=== PATIENT | female | born 1950 | race Caucasian/White ===

== ENCOUNTER 2018-08-22 04:42 | Inpatient (IN) | payer MEDICARE, OTHER ==
[2018-08-22] MEDS ORDERED: Diltiazem 50 MG/10 ML SDV ONE (05:19)
[2018-08-22] MEDS ORDERED: Metoprolol Tartrate 5 MG/5 ML SDV ONE (05:22)
[2018-08-22] MEDS ORDERED: Metoprolol Tartrate 5 MG/5 ML SDV IVPUSH ONE (05:23)
--- NOTE | 2018-08-22 05:33 | EDM.PDOC ---
ED HPI GENERAL MEDICAL PROBLEM - General Chief Complaint: Cardiovascular Problem Stated Complaint: HEART BEATS FAST & SLOW Time Seen by Provider: 08/22/18 04:51 Source of Information: Reports: Patient, Family History Limitations: Reports: No Limitations - History of Present Illness INITIAL COMMENTS - FREE TEXT/NARRATIVE: This is a 68-year-old female. She is noted around 2 AM she awoke and felt like her heart was racing and then it slows down again the races again. She states she is not having any sort of chest pain or dizziness but did have some mild nausea but no vomiting. She has a history of an ablation but she doesn't know why many years ago by a chick sexer in [place] but she is not sure of his name or if he still is in [place]. She comes to the ER she looks like she is in atrial fibrillation from the first EKG but on the monitor she goes from 100 bpm up to 170 and looks like she is in SVT. During the times that her heart rate is up in the 170 she feels like she is going to pass out but her blood pressure does not drop when she is in the rates in the 130s she says she doesn' t feel any particular symptoms. She states she has been on her metoprolol and has not missed a dose. She denies any recent illnesses no colds no coughs no fever no chills no vomiting or diarrhea. The patient indicates that the skipping of her heart has been going on for the last 2 weeks. I has never been as bad as it was this morning and it always has gone back to normal before this AM. This morning however it didn't seem to go back to normal and that is why she came to the ER. 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 Denies: Chest Pain Endocrine: Reports: No Symptoms GI/Abdominal: Reports: Nausea. Denies: Vomiting : Reports: No Symptoms Musculoskeletal: Reports: No Symptoms Skin: Reports: No Symptoms Neurological: Reports: No Symptoms Psychiatric: Reports: No Symptoms Hematologic/Lymphatic: Reports: No Symptoms ED EXAM, GENERAL - Physical Exam Exam: See Below Exam Limited By: No Limitations General Appearance: Alert, WD/WN, No Apparent Distress, Anxious Eye Exam: Bilateral Eye: Normal Inspection Ears: Normal External Exam Nose: Normal Inspection Throat/Mouth: Normal Inspection, Normal Lips, Normal Voice, No Airway Compromise Head: Normocephalic Neck: Supple Respiratory/Chest: No Respiratory Distress, Lungs Clear, Normal Breath Sounds Cardiovascular: No JVD, Tachycardia, Systolic Murmur, Irregularly Irregular GI/Abdominal: Soft, Non-Tender Back Exam: Normal Inspection, Full Range of Motion Extremities: Normal Inspection, Normal Range of Motion, No Pedal Edema Neurological: Alert, Oriented Psychiatric: Anxious Skin Exam: Warm, Dry. No: Diaphoretic EKG INTERPRETATION EKG Date: 08/22/18 Time: 04:53 EKG Interpretation Comments: The patient has what appears to be atrial fibrillation with occasional normal beat with a P-wave, tachycardic, I don't see any obvious ischemia or ST elevation noted. The rate is not controlled at 137. Second EKG suggests a sinus rhythm, there might be some junctional beats or just a sinus arrhythmia. I do not see any acute ST or T-wave changes with this EKG. I do not see any ischemia noted. This time there is good rate control at 95. Third EKG after the diltiazem the rate came down much better and is much more stable and she appears to be in atrial fibrillation. Course - Vital Signs Last Recorded V/S: Last Vital Signs Temp 98 F 08/22/18 04:51 Pulse 123 H 08/22/18 05:24 Resp 23 H 08/22/18 04:51 BP 113/69 08/22/18 05:24 Pulse Ox 98 08/22/18 04:51 - Orders/Labs/Meds Orders: Active Orders 24 hr Category Date Time Status EKG 12 Lead [EKG Documentation Completion] [RC] STAT Care 08/22/18 05:50 Active Diltiazem 125 mg Med 08/22/18 06:45 Active Sodium Chloride 0.9% [Normal Saline] 100 ml IV TITRATE Medication Orders Diltiazem HCl 125 mg/ Sodium (Chloride) 125 mls @ 5 mls/hr IV TITRATE MUNA; Protocol Last Admin: 08/22/18 06:57 Dose: 5 mg/hr, 5 mls/hr Labs: Laboratory Tests 08/22/18 08/22/18 Range/Units 04:54 04:54 WBC 15.34 H (3.98-10.04) K/mm3 RBC 3.69 L (3.98-5.22) M/mm3 Hgb 12.3 (11.2-15.7) gm/L Hct 36.4 (34.1-44.9) % MCV 98.6 H (79.4-94.8) fl MCH 33.3 H (25.6-32.2) pg MCHC 33.8 (32.2-35.5) g/dl RDW Std Deviation 42.7 (36.4-46.3) fL Plt Count 199 (182-369) K/mm3 MPV 10.0 (9.4-12.3) fl Neut % (Auto) 83.0 H (34.0-71.1) % Lymph % (Auto) 7.0 L (19.3-51.7) % [place] % (Auto) 8.7 (4.7-12.5) % Eos % (Auto) 0.8 (0.7-5.8) Baso % (Auto) 0.3 (0.1-1.2) % Neut # (Auto) 12.74 H (1.56-6.13) K/mm3 Lymph # (Auto) 1.07 L (1.18-3.74) K/mm3 [place] # (Auto) 1.33 H (0.24-0.36) K/mm3 Eos # (Auto) 0.12 (0.04-0.36) K/mm3 Baso # (Auto) 0.05 (0.01-0.08) K/mm3 Manual Slide Review Abnormal smear Sodium 139 (136-145) mEq/L Potassium 3.5 (3.5-5.1) mEq/L Chloride 100 (98-107) mEq/L Carbon Dioxide 29 (21-32) mEq/L Anion Gap 13.5 (5-15) BUN 12 (7-18) mg/dL Creatinine 0.9 (0.55-1.02) mg/dL Est Cr Clr Drug Dosing 50.18 mL/min Estimated GFR (MDRD) > 60 (>60) mL/min BUN/Creatinine Ratio 13.3 L (14-18) Glucose 125 H (80-115) mg/dL Calcium 9.0 (8.5-10.1) mg/dL Magnesium 2.2 (1.8-2.4) mg/dl Total Bilirubin 0.6 (0.2-1.0) mg/dL AST 19 (15-37) U/L ALT 22 (14-59) U/L Alkaline Phosphatase 109 (46-116) U/L Troponin I < 0.017 (0.00-0.056) ng/mL Total Protein 7.9 (6.4-8.2) g/dl Albumin 3.5 (3.4-5.0) g/dl Globulin 4.4 gm/dL Albumin/Globulin Ratio 0.8 L (1-2) Meds: Medications Generic Name Dose Route Start Last Admin Trade Name Freq PRN Reason Stop Dose Admin Diltiazem HCl 125 mg/ Sodium 125 mls @ 5 mls/hr 08/22/18 06:45 08/22/18 06:57 Chloride IV 5 mg/hr TITRATE MUNA 5 mls/hr Administration Protocol 5 MG/HR Discontinued Medications Generic Name Dose Route Start Last Admin Trade Name Freq PRN Reason Stop Dose Admin Diltiazem HCl 10 mg 08/22/18 06:28 08/22/18 06:30 Cardizem IVPUSH 08/22/18 06:29 10 mg ONETIME ONE Administration Metoprolol Tartrate 5 mg 08/22/18 05:23 08/22/18 05:24 Lopressor IVPUSH 08/22/18 05:24 5 mg ONETIME ONE Administration Metoprolol Tartrate Confirm 08/22/18 05:22 08/22/18 05:40 Lopressor Administered 08/22/18 05:23 Not Given Dose 10 mg .ROUTE .STK-MED ONE - Re-Assessments/Exams Free Text/Narrative Re-Assessment/Exam: 08/22/18 06:30 When the patient first arrived she had a rate of 130s -140s with episodes of the rate going up into the 170s and 180s. It seemed to be rapidly change back and forth between the rates. She was not having any chest pain she was not diaphoretic she was not short of breath but she could feel it. When it was in the 180s she did state she felt a little lightheaded but again no chest pain. Once we gave the 5 mg Lopressor IV and her rate dropped into around the 100s and 120s again looked more like a sinus rhythm at that time with maybe some junctional beats but no ST or T-wave changes ischemia or elevation. I repeated the EKG again a third time that showed clearly atrial fibrillation with a variable rate but no ST elevation or ischemia. We'll going to try to give her 10 mg of diltiazem to see if we can't get this rate to be more consistent. On the monitor she still jumps from the 90s sometimes 130s and even has small episodes of what look like rapid SVT-type beats. She can still feel her heart doing this skipping between the rates. At no time has she been feeling any sort of chest pain or shortness of breath or diaphoresis. Her blood pressure has maintained 110/120 systolic. 08/22/18 07:08 I called [facility] to speak to Dr. Mora. He apparently stuck in the snow drift and states he will call me back when he is able. I learned from [facility] that she has a history of paroxysmal ventricular tachycardia for which she received ablation years ago. She also has a history of aortic and mitral valve stenosis that they're watching. 08/22/18 07:15 I spoke to the patient regarding the third EKG in the diltiazem seeming to help better her rate control. We will place her on diltiazem drip at this time. I did speak to Dr. Hoyos regarding this patient and he will admit her to the ICU on the diltiazem drip. Departure - Departure Time of Disposition: 07:16 Disposition: Admitted As Inpatient 67 Condition: Good Clinical Impression: Atrial fibrillation with rapid ventricular response ED Communication - ED Communication Date/Time Date: 08/22/18 Time Called: 07:15 - Discussed Case With (1) Discussed Case With (1): Admitting Provider Person/s Notified (1): Alayna Hoyos (He will admit for further evaluation and treatment) Date: 08/22/18 Time Called: 07:15 - My Orders Last 24 Hours: My Active Orders 08/22/18 05:50 EKG 12 Lead [EKG Documentation Completion] [RC] STAT 08/22/18 06:45 Diltiazem 125 mg Sodium Chloride 0.9% [Normal Saline] 100 ml IV TITRATE - Assessment/Plan Last 24 Hours: My Active Orders 08/22/18 05:50 EKG 12 Lead [EKG Documentation Completion] [RC] STAT 08/22/18 06:45 Diltiazem 125 mg Sodium Chloride 0.9% [Normal Saline] 100 ml IV TITRATE
[2018-08-22] MEDS ORDERED: Diltiazem 50 MG/10 ML SDV IVPUSH ONE (06:28)
[2018-08-22] MEDS ORDERED: Diltiazem 125 MG in Sodium Chloride 0.9% 100 ML IV SCH (06:45)
[2018-08-22] MEDS ORDERED: Metoprolol Tartrate 5 MG/5 ML SDV IVPUSH PRN (08:37)
[2018-08-22] MEDS ORDERED: hydrALAZINE 20 MG/ML SDV IVPUSH PRN (08:37)
[2018-08-22] MEDS ORDERED: Ondansetron 4 MG/2 ML SDV IV PRN (08:39)
[2018-08-22] MEDS ORDERED: Docusate Sodium 100 MG Cap PO PRN (08:39)
[2018-08-22] MEDS ORDERED: Temazepam 7.5 MG Cap PO PRN (08:39)
[2018-08-22] MEDS ORDERED: LORazepam 2 MG/ML SDV IV PRN (08:39)
[2018-08-22] MEDS ORDERED: Acetaminophen/HYDROcodone 325-5 MG Tab PO PRN (08:39)
[2018-08-22] MEDS ORDERED: Acetaminophen 325 MG Tab PO PRN (08:39)
[2018-08-22] MEDS ORDERED: Polyethylene Glycol 3350 Powder 17 GM Packet PO PRN (08:39)
[2018-08-22] MEDS ORDERED: Albuterol/Ipratropium 3.0-0.5 MG/3 ML Neb Soln NEB PRN (08:39)
[2018-08-22] MEDS ORDERED: Bisacodyl 5 MG Tab PO PRN (08:39)
[2018-08-22] MEDS ORDERED: HYDROmorphone 1 MG/ML Syringe IVPUSH PRN (08:39)
[2018-08-22] MEDS ORDERED: Metoprolol Tartrate 25 MG Tab PO SCH (09:00)
[2018-08-22 09:01] LABS: HEMOGLOBIN A1C 5.6 % (4.50-6.20)
[2018-08-22] MEDS ORDERED: Metoprolol Tartrate 50 MG Tab PO ONE (10:20)
--- NOTE | 2018-08-22 10:22 | PCM.HP ---
H&P History of Present Illness - General Date of Service: 08/22/18 Admit Problem/Dx: Admission Diagnosis/Problem Admission Diagnosis/Problem Supraventricular tachycardia Source of Information: Patient, Family, Provider, RN Notes Reviewed History Limitations: Reports: No Limitations - History of Present Illness Initial Comments - Free Text/Narative: This is a 68 yo white female who younger than her stated age with past medical hx/o RA on MTX and Hx/o SVT S/p Ablation in 1998, now on BB who comes in for evaluation of heart palpitations that woke her up at about 2 AM associated with nausea but no shortness of breath or chest pain. Per ED notes, she presented initially with what looked like atrial fibrillation on initial EKG but on monitor her heart rate went from 100 to 170s and appeared rather SVT. At that time, patient felt like she was going to pass out. A review of her home medications, show she is on Metoprolol 25 mg po daily for rate control agent. She denies having hx/o thyroid disease or taking any stimulants. She is not a heavy coffee or tea drinker. Patient's indicates that she has been having occasional episode of heart palpitations for the past 2 weeks. However he states that it has never been as bad as this morning. Her initial work up in ED shows a CBC remarkable for WBC of 15.34, RBC of 3.69, MCV of 98.6, MCH of 33.3, Neutrophils of 83%, Lymphocytes of 7% and Monocytes # of 1.33. Her chemistry is significant for BS of 125. Patient is being admitted for medical management of Atrial Fibrillation/SVT on Cardizem drip. She is full code. - Related Data Allergies/Adverse Reactions: Allergies Allergy/AdvReac Type Severity Reaction Status Date / Time Sulfa (Sulfonamide Allergy Hives Verified 08/22/18 04:55 Antibiotics) Home Medications: Home Meds Folic Acid 1,000 units PO DAILY 10/19/14 [History] Methotrexate Sodium/PF [Methotrexate 250 mg/10 ml Vial] 0.6 ml SUBCUT WEEKLY [History] Diltiazem [Dilacor XR] 240 mg PO DAILY #30 cap.er 08/23/18 [Rx] Metoprolol Tartrate [Lopressor] 50 mg PO BID #60 tablet 08/23/18 [Rx] Rivaroxaban [Xarelto] 20 mg PO ASDIRECTED #30 tablet 08/23/18 [Rx] Past Medical History HEENT History: Reports: Impaired Vision Other HEENT History: wears glassess Cardiovascular History: Reports: Afib Other Cardiovascular History: cardiac dysrythmia with ablation in 1998 [employer]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: - Past Surgical History HEENT Surgical History: Reports: Tonsillectomy GI Surgical History: Reports: Appendectomy, Colonoscopy Social & Family History - Tobacco Use Smoking Status *Q: Never Smoker - Caffeine Use Caffeine Use: Reports: None - Recreational Drug Use Recreational Drug Use: No H&P Review of Systems - Review of Systems: Review Of Systems: See Below Exam - Exam Exam: See Below - Vital Signs Vital Signs: Last Vital Signs Temp 36.6 C 08/22/18 08:39 Pulse 46 L 08/22/18 10:01 Resp 12 08/22/18 10:01 BP 105/72 08/22/18 10:01 Pulse Ox 97 08/22/18 10:01 Weight: 52.435 kg - Patient Data Lab Results Last 24 hrs: Laboratory Results - last 24 hr 08/22/18 08/22/18 08/22/18 Range/Units 04:54 04:54 04:54 WBC 15.34 H (3.98-10.04) K/mm3 RBC 3.69 L (3.98-5.22) M/mm3 Hgb 12.3 (11.2-15.7) gm/L Hct 36.4 (34.1-44.9) % MCV 98.6 H (79.4-94.8) fl MCH 33.3 H (25.6-32.2) pg MCHC 33.8 (32.2-35.5) g/dl RDW Std Deviation 42.7 (36.4-46.3) fL Plt Count 199 (182-369) K/mm3 MPV 10.0 (9.4-12.3) fl Neut % (Auto) 83.0 H (34.0-71.1) % Lymph % (Auto) 7.0 L (19.3-51.7) % [place] % (Auto) 8.7 (4.7-12.5) % Eos % (Auto) 0.8 (0.7-5.8) Baso % (Auto) 0.3 (0.1-1.2) % Neut # (Auto) 12.74 H (1.56-6.13) K/mm3 Lymph # (Auto) 1.07 L (1.18-3.74) K/mm3 [place] # (Auto) 1.33 H (0.24-0.36) K/mm3 Eos # (Auto) 0.12 (0.04-0.36) K/mm3 Baso # (Auto) 0.05 (0.01-0.08) K/mm3 Manual Slide Review Abnormal smear Sodium 139 (136-145) mEq/L Potassium 3.5 (3.5-5.1) mEq/L Chloride 100 (98-107) mEq/L Carbon Dioxide 29 (21-32) mEq/L Anion Gap 13.5 (5-15) BUN 12 (7-18) mg/dL Creatinine 0.9 (0.55-1.02) mg/dL Est Cr Clr Drug Dosing 50.18 mL/min Estimated GFR (MDRD) > 60 (>60) mL/min BUN/Creatinine Ratio 13.3 L (14-18) Glucose 125 H (80-115) mg/dL Hemoglobin A1c (4.50-6.20) % Calcium 9.0 (8.5-10.1) mg/dL Magnesium 2.2 (1.8-2.4) mg/dl Total Bilirubin 0.6 (0.2-1.0) mg/dL AST 19 (15-37) U/L ALT 22 (14-59) U/L Alkaline Phosphatase 109 (46-116) U/L Troponin I < 0.017 (0.00-0.056) ng/mL Total Protein 7.9 (6.4-8.2) g/dl Albumin 3.5 (3.4-5.0) g/dl Globulin 4.4 gm/dL Albumin/Globulin Ratio 0.8 L (1-2) Free T4 1.22 (0.76-1.46) ng/dL TSH 3rd Generation 2.459 (0.358-3.74) uIU/mL 08/22/18 Range/Units 04:54 WBC (3.98-10.04) K/mm3 RBC (3.98-5.22) M/mm3 Hgb (11.2-15.7) gm/L Hct (34.1-44.9) % MCV (79.4-94.8) fl MCH (25.6-32.2) pg MCHC (32.2-35.5) g/dl RDW Std Deviation (36.4-46.3) fL Plt Count (182-369) K/mm3 MPV (9.4-12.3) fl Neut % (Auto) (34.0-71.1) % Lymph % (Auto) (19.3-51.7) % [place] % (Auto) (4.7-12.5) % Eos % (Auto) (0.7-5.8) Baso % (Auto) (0.1-1.2) % Neut # (Auto) (1.56-6.13) K/mm3 Lymph # (Auto) (1.18-3.74) K/mm3 [place] # (Auto) (0.24-0.36) K/mm3 Eos # (Auto) (0.04-0.36) K/mm3 Baso # (Auto) (0.01-0.08) K/mm3 Manual Slide Review Sodium (136-145) mEq/L Potassium (3.5-5.1) mEq/L Chloride (98-107) mEq/L Carbon Dioxide (21-32) mEq/L Anion Gap (5-15) BUN (7-18) mg/dL Creatinine (0.55-1.02) mg/dL Est Cr Clr Drug Dosing mL/min Estimated GFR (MDRD) (>60) mL/min BUN/Creatinine Ratio (14-18) Glucose (80-115) mg/dL Hemoglobin A1c 5.60 (4.50-6.20) % Calcium (8.5-10.1) mg/dL Magnesium (1.8-2.4) mg/dl Total Bilirubin (0.2-1.0) mg/dL AST (15-37) U/L ALT (14-59) U/L Alkaline Phosphatase (46-116) U/L Troponin I (0.00-0.056) ng/mL Total Protein (6.4-8.2) g/dl Albumin (3.4-5.0) g/dl Globulin gm/dL Albumin/Globulin Ratio (1-2) Free T4 (0.76-1.46) ng/dL TSH 3rd Generation (0.358-3.74) uIU/mL Result Diagrams: 08/23/18 05:30 08/23/18 05:30 Problem List Initiated/Reviewed/Updated: Yes Orders Last 24hrs: Active Orders 24 hr Category Date Time Status Patient Status [ADT] Routine ADT 08/22/18 07:41 Active Cardiac Monitoring [RC] .PRN Care 08/22/18 08:39 Active EKG 12 Lead [EKG Documentation Completion] [RC] STAT Care 08/22/18 05:50 Active Height and Weight [RC] 04 Care 08/22/18 08:39 Active Intake and Output [RC] 04,16 Care 08/22/18 08:39 Active Oxygen Therapy [RC] PRN Care 08/22/18 08:39 Active RT Aerosol Therapy [RC] ASDIRECTED Care 08/22/18 08:40 Active Up With Assistance [RC] ASDIRECTED Care 08/22/18 08:39 Active Up ad Kristi [RC] ASDIRECTED Care 08/22/18 08:39 Active VTE/DVT Education [RC] BID Care 08/22/18 08:39 Active Vital Signs [RC] Q1HR Care 08/22/18 08:39 Active Regular Diet [DIET] Diet 08/22/18 Breakfast Active Echo Comp wo Cont [US] Routine Exams 08/23/18 07:00 Ordered BASIC METABOLIC PANEL,BMP [CHEM] AM Lab 08/23/18 05:11 Ordered BASIC METABOLIC PANEL,BMP [CHEM] AM Lab 08/24/18 05:11 Ordered CBC WITH AUTO DIFF [HEME] AM Lab 08/23/18 05:11 Ordered CBC WITH AUTO DIFF [HEME] AM Lab 08/24/18 05:11 Ordered DRUG SCREEN, URINE REFLEX [URCHEM] Stat Lab 08/22/18 08:42 Ordered MAGNESIUM [CHEM] AM Lab 08/23/18 05:11 Ordered MAGNESIUM [CHEM] AM Lab 08/24/18 05:11 Ordered Acetaminophen [Tylenol] Med 08/22/18 08:39 Active 650 mg PO Q4H PRN Acetaminophen/HYDROcodone [[place] 325-5 MG] Med 08/22/18 08:39 Active 1 tab PO Q4H PRN Albuterol/Ipratropium [DuoNeb 3.0-0.5 MG/3 ML] Med 08/22/18 08:39 Active 3 ml NEB Q4H PRN Bisacodyl [Dulcolax] Med 08/22/18 08:39 Active 5 mg PO DAILY PRN Diltiazem 125 mg Med 08/22/18 06:45 Active Sodium Chloride 0.9% [Normal Saline] 100 ml IV TITRATE Docusate Sodium [Colace] Med 08/22/18 08:39 Active 100 mg PO BID PRN Docusate Sodium/Sennosides [Senna Plus] Med 08/22/18 08:39 Active 1 tab PO BID PRN Folic Acid Med 08/22/18 09:00 Active 1 mg PO DAILY HYDROmorphone [Dilaudid] Med 08/22/18 08:39 Active 0.25 mg IVPUSH Q2H PRN LORazepam [Ativan] Med 08/22/18 08:39 Active 0.5 mg IV Q6H PRN Methotrexate Sodium/PF Med 08/28/18 09:00 Pending 0.6 ml SUBCUT Q7D Metoprolol Tartrate [Lopressor] Med 08/22/18 09:00 Active 25 mg PO BID Metoprolol Tartrate [Lopressor] Med 08/22/18 08:37 Active 5 mg IVPUSH Q4H PRN Metoprolol Tartrate [Lopressor] Med 08/22/18 10:20 Once 50 mg PO ONETIME ONE Ondansetron [Zofran] Med 08/22/18 08:39 Active 4 mg IV Q6H PRN Pharmacy to Dose - Magnesium R [Pharmacy to Dose - Med 08/22/18 08:45 Active Magnesium Replacement] 0 dose .XX ASDIRECTED PRN Pharmacy to Dose - Potassium R [Pharmacy to Dose - Med 08/22/18 08:45 Active Potassium Replacement] 0 dose .XX ASDIRECTED PRN Polyethylene Glycol 3350 [MiraLAX] Med 08/22/18 08:39 Active 17 gm PO DAILY PRN Temazepam [Restoril] Med 08/22/18 08:39 Active 7.5 mg PO BEDTIME PRN hydrALAZINE [Apresoline] Med 08/22/18 08:37 Active 20 mg IVPUSH Q4H PRN Resuscitation Status Routine Resus Stat 08/22/18 08:39 Ordered Medication Orders Acetaminophen (Tylenol) 650 mg PO Q4H PRN PRN Reason: Pain (Mild 1-3)/fever Hydrocodone Bitart/Acetaminophen ([place] 325-5 Mg) 1 tab PO Q4H PRN PRN Reason: Pain (moderate 4-6) Albuterol/Ipratropium (Duoneb 3.0-0.5 Mg/3 Ml) 3 ml NEB Q4H PRN PRN Reason: Shortness Of Breath/wheezing Bisacodyl (Dulcolax) 5 mg PO DAILY PRN PRN Reason: Constipation Docusate Sodium (Colace) 100 mg PO BID PRN PRN Reason: Constipation Folic Acid (Folic Acid) 1 mg PO DAILY MUNA Hydralazine HCl (Apresoline) 20 mg IVPUSH Q4H PRN PRN Reason: Hypertension Hydromorphone HCl (Dilaudid) 0.25 mg IVPUSH Q2H PRN PRN Reason: Pain (severe 7-10) Diltiazem HCl 125 mg/ Sodium (Chloride) 125 mls @ 5 mls/hr IV TITRATE MUNA; Protocol Last Titration: 08/22/18 08:15 Dose: 15 mg/hr, 15 mls/hr Admin: 08/22/18 06:57 Dose: 5 mg/hr, 5 mls/hr Lorazepam (Ativan) 0.5 mg IV Q6H PRN PRN Reason: Anxiety Magnesium Sulfate (Pharmacy To Dose - Magnesium Replacement) 0 dose .XX ASDIRECTED PRN PRN Reason: RX TO WATCH MAG Metoprolol Tartrate (Lopressor) 25 mg PO BID MUNA Metoprolol Tartrate (Lopressor) 5 mg IVPUSH Q4H PRN PRN Reason: Tachycardia Metoprolol Tartrate (Lopressor) 50 mg PO ONETIME ONE Stop: 08/22/18 10:21 Non-Formulary Medication (Methotrexate Sodium/Pf) 0.6 ml SUBCUT Q7D MUNA Ondansetron HCl (Zofran) 4 mg IV Q6H PRN PRN Reason: Nausea/Vomiting Polyethylene Glycol (Miralax) 17 gm PO DAILY PRN PRN Reason: Constipation Potassium Chloride (Pharmacy To Dose - Potassium Replacement) 0 dose .XX ASDIRECTED PRN PRN Reason: RX TO WATCH K Senna/Docusate Sodium (Senna Plus) 1 tab PO BID PRN PRN Reason: Constipation Temazepam (Restoril) 7.5 mg PO BEDTIME PRN PRN Reason: Sleep Assessment/Plan Comment:: Assessment/Plan: Acute: A-fib w/ RVR vs SVT - Carries a hx/o SVT S/p Ablation in 1998 - No HTN, DM or HLD - Has RA on MTX - Troponin is negative - She takes no stimulants and does not drinks much coffee or caffeinated products - On Cardizem drip at 15 mcg but heart rate still not controlled in the 140s- 150s - Thyroid Panel and UDS - 2D echo in AM Hyperglycemia - BS 125 - She is not on steroids - Screen for DM Leukocytosis - WBC 15k - No signs of infection; no fever or chills - 2/2 physiologic stress Chronic: RA on MTX Hx/o SVT on BB Plan: Admit to ICU Resume Home Meds Continue Cardizem drip Metoprolol 50 mg po BID for beta blockade Avoid stimulants PT/OT asses and eval DVT PPx: SCDs; Xarelto in Am for pharmacy to dose Code status: 1
[2018-08-22] MEDS: Folic Acid 1 MG Tab PO SCH (10:31)
--- NOTE | 2018-08-22 10:48 | PCM.SN ---
- Free Text/Narrative Note: Briefly seen and examined with at bedside. She is comfortably lying bed on Cardizem drip at 15mcgs. Her heart rate initially runs in the 140s-150s and then further went up to 170s-180s at the time just as I am about to leave the room. She carries a hx/o SVT S/p Ablation in [address] Pineda. She has not had any issues since then but according to her , she sometimes experience occasional heart palpitation. She is currently on Metoprolol for rate control agent. She does not drink coffee but drinks decaffeinated tea. She does not drinks much soda or eat a lot of chocolate. She denies taking any stimulants. She denies any past hx/o thyroid disease. Explained to them briefly our game plan: tests to run and/or to order plus treatment. They are aware 2D echo would not be done until tomorrow. Ordered Metoprolol 50 mg po x1, plus PRN 5 mg IVP Lopressor and PRN Ativan.
[2018-08-22] MEDS: Metoprolol Tartrate 50 MG Tab PO SCH (20:11)
[2018-08-23] MEDS: Metoprolol Tartrate 50 MG Tab PO SCH (08:23)
[2018-08-23] MEDS: Folic Acid 1 MG Tab PO SCH (08:23)
[2018-08-23 08:25] VITALS: BP 125/52
[2018-08-23] MEDS ORDERED: Diltiazem 120 MG Cap.CD PO SCH (09:00)
[2018-08-23] MEDS ORDERED: Rivaroxaban 10 MG Tab PO SCH ×2 (09:00→17:00)
--- NOTE | 2018-08-23 12:34 | PCM.SN ---
- Free Text/Narrative Note: Patient seen and examined with at bedside. She slept good and has no acute issues. Her heart has been pretty much controlled in the 70-80s at rest. She converted to sinus rhythm at about 1800 last evening with a heart rate of 82. With activity, her heart rate stays in the 60-70s; the highest it got to is 81. Her 2D echo shows LVEF of 60-65% with mild aortic stenosis with mild aortic insufficiency. No RWM abnormalities. She should be okay to go home today. Discharge with 48hrs holter monitor and f/u with EP. Of note, patient and told me that before I saw her on the floor yesterday, her heart rate had shot up in the 200s. Reviewed her serial EKGs, mostly looked like SVT/PAcs but one did look like atrial fibrillation. Since she has had occasional episode of heart palpitations, offered them anticoagulation for stroke prophylaxis. Informed them she can come off of it once cardiac work evaluation is done. In the meantime, she was advised to avoid NSAIDs and Aspirin while on Xarelto. She was also advised to check her vitals and show log on follow up appointment with her PCP.
--- NOTE | 2018-08-23 13:04 | PCM.DCSUM1 ---
Discharge Summary - Hospital Course Free Text/Narrative:: Patient was primarily admitted for medical management of SVT/Atrial Fibrillation. She carried a hx/o cardiac dysrhythmia status post ablation in 1998. She had been doing just fine on beta ruiz for rate maintenance medication until recently when she started having occasional episodes of heart rate palpitations which prompted her to seek medical treatment. On presentation , she was found to be in atrial fibrillation but on monitor and on subsequent EKGs she was deemed in SVTs. Her thyroid panel was normal and her UDS was negative. She was put on Cardizem drip but did not respond to it until Metoprolol was added to her regimen. She did however improve on this regimen. Her hospital course was uncomplicated. Once her 2D echo result came back with no findings of intracardiac clot or reduced EF, she was then sent home with anticoagulant for stroke prophylaxis and Cardizem CD 240 mg po daily & Metoprolol 50 mg po BID for rate control agents. A 48hrs holter monitor was sent along with her and she was set up an appointment to see an time broker after discharge. She was advised to check her vitals and show log on follow up appointment with her family doctor. She was further advised to comeback or seek immediate care should her symptom persists or gets worse. The patient and her at bedside expressed understanding and in agreement with the plans as discussed above. All questions were answered. HPI Initial Comments: This is a 68 yo white female who younger than her stated age with past medical hx/o RA on MTX and Hx/o SVT S/p Ablation in 1998, now on BB who comes in for evaluation of heart palpitations that woke her up at about 2 AM associated with nausea but no shortness of breath or chest pain. Per ED notes, she presented initially with what looked like atrial fibrillation on initial EKG but on monitor her heart rate went from 100 to 170s and appeared rather SVT. At that time, patient felt like she was going to pass out. A review of her home medications, show she is on Metoprolol 25 mg po daily for rate control agent. She denies having hx/o thyroid disease or taking any stimulants. She is not a heavy coffee or tea drinker. Patient's indicates that she has been having occasional episode of heart palpitations for the past 2 weeks. However he states that it has never been as bad as this morning. Her initial work up in ED shows a CBC remarkable for WBC of 15.34, RBC of 3.69, MCV of 98.6, MCH of 33.3, Neutrophils of 83%, Lymphocytes of 7% and Monocytes # of 1.33. Her chemistry is significant for BS of 125. Patient is being admitted for medical management of Atrial Fibrillation/SVT on Cardizem drip. She is full code. Diagnosis: Stroke: No - Discharge Data Discharge Date: 08/23/18 Discharge Disposition: Home, Self-Care 01 Condition: Good - Discharge Diagnosis/Problem(s) (1) SVT (supraventricular tachycardia) SNOMED Code(s): 0848900 ICD Code: I47.1 - SUPRAVENTRICULAR TACHYCARDIA Status: Resolved (2) Atrial fibrillation with rapid ventricular response SNOMED Code(s): 173799566469575 ICD Code: I48.91 - UNSPECIFIED ATRIAL FIBRILLATION Status: Resolved - Patient Summary/Data Operative Procedure(s) Performed: None Complications: None Consults: None Labs Pending at D/C: None Recommended Follow-up Testing/Procedures: 48hrs holter monitor and EP eval after discharge Planned Operative Procedure(s) after DC: None - Patient Instructions Diet: Heart Healthy Diet, Usual Diet as Tolerated Activity: As Tolerated Driving: Do Not Drive Showering/Bathing: May Shower Notify Provider of: Fever, Increased Pain, Swelling and Redness, Nausea and/or Vomiting Other/Special Instructions: - Please take all new medications as directed. - Resume all home medications and routine home activities as tolerated. - Avoid Aspirin and NSAIDs! - Recommend you see cardiology for further evaluation. - Make sure you follow holter monitor instructions. - Check vitals before you take rate control pills and show log on follow up appointment with PCP. - Call or follow up with your PCP for any questions or concerns after discharge. - Follow up with your PCP in 1 week. - Come back or seek immediate care at [facility] should your symptoms persist or get worse - Discharge Plan *PRESCRIPTION DRUG MONITORING PROGRAM REVIEWED*: Not Applicable *COPY OF PRESCRIPTION DRUG MONITORING REPORT IN PATIENT SANTANA: Not Applicable Prescriptions/Med Rec: Diltiazem [Dilacor XR] 240 mg PO DAILY #30 cap.er Metoprolol Tartrate [Lopressor] 50 mg PO BID #60 tablet Rivaroxaban [Xarelto] 20 mg PO ASDIRECTED #30 tablet Home Medications: Home Meds Folic Acid 1,000 units PO DAILY 10/19/14 [History] Methotrexate Sodium/PF [Methotrexate 250 mg/10 ml Vial] 0.6 ml SUBCUT WEEKLY [History] Diltiazem [Dilacor XR] 240 mg PO DAILY #30 cap.er 08/23/18 [Rx] Metoprolol Tartrate [Lopressor] 50 mg PO BID #60 tablet 08/23/18 [Rx] Rivaroxaban [Xarelto] 20 mg PO ASDIRECTED #30 tablet 08/23/18 [Rx] Patient Handouts: Supraventricular Tachycardia, Adult, [id number], Holter Monitoring, Atrial Fibrillation, [id number] Referrals: Rasta Mak [Ordering Only Provider] - 09/17/18 11:30 am (Electrophysiology marine water tender referral. Appointment is at [facility]. [phone]. [address] [place] [address]. Labwork at 11:30 am BLADE WORKER (10:30 MST), Appointment at 12:30 pm BLADE WORKER (11:30 MST). ) Bhavin Mansfield MD [Primary Care Provider] - 08/30/18 3:15 pm - Discharge Summary/Plan Comment DC Time >30 min.: No Discharge Summary/Plan Comment: Discharge to Home - General Info Date of Service: 08/23/18 Admission Dx/Problem (Free Text: Admission Diagnosis/Problem Admission Diagnosis/Problem Supraventricular tachycardia Subjective Update: Follow Up Functional Status: Reports: Pain Controlled, Tolerating Diet, Ambulating, Urinating. Denies: New Symptoms - Review of Systems General: Denies: Fever, Weakness, Fatigue, Malaise, Chills HEENT: Reports: No Symptoms Pulmonary: Denies: Shortness of Breath, Cough Cardiovascular: Denies: Chest Pain, Palpitations, Dyspnea on Exertion, Orthopnea , Lightheadedness Gastrointestinal: Denies: Abdominal Pain, Nausea, Vomiting Genitourinary: Reports: No Symptoms Musculoskeletal: Reports: No Symptoms Skin: Denies: Cyanosis Neurological: Denies: Dizziness, Headache, Syncope, Tremors, Trouble Speaking, Difficulty Walking, Weakness, Gait Disturbance Psychiatric: Denies: Confusion, Anxiety, Cravings Systems Review Comment: No overnight or acute issues. Her heart rate remains controlled at rest and with activity. She was no complaints this AM. - Patient Data Vitals - Most Recent: Last Vital Signs Temp 36.2 C 08/23/18 08:00 Pulse 85 08/23/18 08:24 Resp 18 08/23/18 08:00 BP 125/52 L 08/23/18 08:24 Pulse Ox 98 08/23/18 08:39 Weight - Most Recent: 54.25 kg I&O - Last 24 hours: Intake & Output 08/22/18 08/23/18 08/23/18 22:59 06:59 14:59 Intake Total 844 240 360 Output Total 400 Balance 844 -160 360 Lab Results - Last 24 hrs: Laboratory Results - last 24 hr 08/23/18 08/23/18 Range/Units 05:30 05:30 WBC 6.71 (3.98-10.04) K/mm3 RBC 3.31 L (3.98-5.22) M/mm3 Hgb 10.9 L (11.2-15.7) gm/L Hct 32.7 L (34.1-44.9) % MCV 98.8 H (79.4-94.8) fl MCH 32.9 H (25.6-32.2) pg MCHC 33.3 (32.2-35.5) g/dl RDW Std Deviation 41.9 (36.4-46.3) fL Plt Count 200 (182-369) K/mm3 MPV 9.7 (9.4-12.3) fl Neut % (Auto) 65.2 (34.0-71.1) % Lymph % (Auto) 21.5 (19.3-51.7) % Boyd % (Auto) 8.9 (4.7-12.5) % Eos % (Auto) 3.7 (0.7-5.8) Baso % (Auto) 0.6 (0.1-1.2) % Neut # (Auto) 4.37 (1.56-6.13) K/mm3 Lymph # (Auto) 1.44 (1.18-3.74) K/mm3 Boyd # (Auto) 0.60 H (0.24-0.36) K/mm3 Eos # (Auto) 0.25 (0.04-0.36) K/mm3 Baso # (Auto) 0.04 (0.01-0.08) K/mm3 Sodium 137 (136-145) mEq/L Potassium 4.0 (3.5-5.1) mEq/L Chloride 102 (98-107) mEq/L Carbon Dioxide 29 (21-32) mEq/L Anion Gap 10.0 (5-15) BUN 18 (7-18) mg/dL Creatinine 0.8 (0.55-1.02) mg/dL Est Cr Clr Drug Dosing 56.45 mL/min Estimated GFR (MDRD) > 60 (>60) mL/min BUN/Creatinine Ratio 22.5 H (14-18) Glucose 87 (80-115) mg/dL Calcium 8.3 L (8.5-10.1) mg/dL Magnesium 4.0 H (1.8-2.4) mg/dl Med Orders - Current: Current Medications Acetaminophen (Tylenol) 650 mg PO Q4H PRN PRN Reason: Pain (Mild 1-3)/fever Hydrocodone Bitart/Acetaminophen ([place] 325-5 Mg) 1 tab PO Q4H PRN PRN Reason: Pain (moderate 4-6) Albuterol/Ipratropium (Duoneb 3.0-0.5 Mg/3 Ml) 3 ml NEB Q4H PRN PRN Reason: Shortness Of Breath/wheezing Bisacodyl (Dulcolax) 5 mg PO DAILY PRN PRN Reason: Constipation Diltiazem HCl (Dilacor Xr) 240 mg PO DAILY MUNA Docusate Sodium (Colace) 100 mg PO BID PRN PRN Reason: Constipation Folic Acid (Folic Acid) 1 mg PO DAILY MUNA Last Admin: 08/23/18 08:23 Dose: 1 mg Hydralazine HCl (Apresoline) 20 mg IVPUSH Q4H PRN PRN Reason: Hypertension Hydromorphone HCl (Dilaudid) 0.25 mg IVPUSH Q2H PRN PRN Reason: Pain (severe 7-10) Diltiazem HCl 125 mg/ Sodium (Chloride) 125 mls @ 5 mls/hr IV TITRATE MUNA; Protocol Last Titration: 08/22/18 13:17 Dose: 0 mg/hr, 0 mls/hr Lorazepam (Ativan) 0.5 mg IV Q6H PRN PRN Reason: Anxiety Last Admin: 08/22/18 10:34 Dose: 0.5 mg Magnesium Sulfate (Pharmacy To Dose - Magnesium Replacement) 0 dose .XX ASDIRECTED PRN PRN Reason: RX TO WATCH MAG Metoprolol Tartrate (Lopressor) 5 mg IVPUSH Q4H PRN PRN Reason: Tachycardia Last Admin: 08/22/18 15:28 Dose: 5 mg Metoprolol Tartrate (Lopressor) 50 mg PO BID [facility] Last Admin: 08/23/18 08:23 Dose: 50 mg Ondansetron HCl (Zofran) 4 mg IV Q6H PRN PRN Reason: Nausea/Vomiting Methotrexate Sodium/ (Pf 0.6 Ml = 15 Mg) 0 each SUBCUT Q7D [facility] Polyethylene Glycol (Miralax) 17 gm PO DAILY PRN PRN Reason: Constipation Potassium Chloride (Pharmacy To Dose - Potassium Replacement) 0 dose .XX ASDIRECTED PRN PRN Reason: RX TO WATCH K [facility]) [facility] Senna/Docusate Sodium (Senna Plus) 1 tab PO BID PRN PRN Reason: Constipation Temazepam (Restoril) 7.5 mg PO BEDTIME PRN PRN Reason: Sleep Discontinued Medications Diltiazem HCl (Cardizem) 10 mg IVPUSH ONETIME ONE Stop: 08/22/18 06:29 Last Admin: 08/22/18 06:30 Dose: 10 mg Diltiazem HCl (Cardizem Cd) 240 mg PO DAILY [facility] Last Admin: 08/23/18 08:24 Dose: Not Given Metoprolol Tartrate (Lopressor) 5 mg IVPUSH ONETIME ONE Stop: 08/22/18 05:24 Last Admin: 08/22/18 05:24 Dose: 5 mg Metoprolol Tartrate (Lopressor) Confirm Administered Dose 10 mg .ROUTE .STK-MED ONE Stop: 08/22/18 05:23 Last Admin: 08/22/18 05:40 Dose: Not Given Metoprolol Tartrate (Lopressor) 25 mg PO BID [facility] Last Admin: 08/22/18 10:26 Dose: Not Given Metoprolol Tartrate (Lopressor) 50 mg PO ONETIME ONE Stop: 08/22/18 10:21 Last Admin: 08/22/18 10:31 Dose: 50 mg - Exam General: Reports: Alert, Oriented, Cooperative, No Acute Distress HEENT: Reports: Pupils Equal, Pupils Reactive, EOMI, Mucous Membr. Moist/[place] Neck: Reports: Supple Lungs: Reports: Clear to Auscultation, Normal Respiratory Effort Cardiovascular: Reports: Regular Rate, Regular Rhythm GI/Abdominal Exam: Normal Bowel Sounds, Soft, Non-Tender, No Organomegaly, No Abnormal Bruit, No Mass (Female) Exam: Deferred Rectal (Female) Exam: Deferred Back Exam: Reports: Normal Inspection, Full Range of Motion Extremities: Normal Inspection, Normal Range of Motion, Non-Tender, No Pedal Edema, Normal Capillary Refill Skin: Reports: Warm, Dry, Intact Neurological: Reports: No New Focal Deficit, Normal Gait Psy/Mental Status: Reports: Alert, Normal Affect, Normal Mood
[2018-08-24] MEDS ORDERED: Diltiazem 240 MG Cap.ER PO SCH (09:00)
[2018-08-28] MEDS ORDERED: METHOTREXATE SODIUM SUBCUT SCH (09:00)
== END 2018-08-23 14:17 | disposition home or self-care (01) | DRG 310 ==
LOC: JD.ED 04:42 → JD.ICU 07:41
PROVIDERS: ADMIT Internal Medicine; ATTEND Internal Medicine
DX: I47.1 Supraventricular tachycardia (principal); I48.91 Unspecified atrial fibrillation; H54.7 Unspecified visual loss; I08.0 Rheumatic disorders of both mitral and aortic valves; Z88.2 Allergy status to sulfonamides; Z79.899 Other long term (current) drug therapy; R11.0 Nausea; M06.9 Rheumatoid arthritis, unspecified; Z79.52 Long term (current) use of systemic steroids; R73.9 Hyperglycemia, unspecified
CPT/HCPCS: 36415; 80053; 83036; 83735; 84439; 84443; 84484; 85025; 93005 ×2; 96365; 96375; 96376; 99285; J3490 ×3; J7030; 80048; 80306; 93306; A9270-GY; J2060

== ENCOUNTER 2018-08-24 19:44 | Emergency (ER) | payer MEDICARE, OTHER ==
[2018-08-24 20:16] VITALS: BP 109/60
--- NOTE | 2018-08-24 20:43 | EDM.PDOC ---
ED HPI GENERAL MEDICAL PROBLEM - General Chief Complaint: Cardiovascular Problem Stated Complaint: REACTION TO MEDS Time Seen by Provider: 08/24/18 20:25 Source of Information: Reports: Patient, RN Notes Reviewed - History of Present Illness INITIAL COMMENTS - FREE TEXT/NARRATIVE: 68-year-old lady was admitted to the hospital 2 days ago with A. fib, rapid ventricular response. Discharged home on yesterday. When she took her evening diltiazem last evening 240 mg XL she did develop some chest discomfort about 2 in the morning today, about 8 hours later that did eventually resolve. He had the Cardizem's evening along with her metoprolol and then about an hour later started developing some tightness in her left chest again. Pain is now gone. She is wondering if this is medication related or what might be going on. She does not feel short of breath. There's been no cough fever or chills. Her blood pressures noted to be somewhat low on arrival to ED but she has not been feeling weak dizzy or lightheaded even when standing. Previously been on metoprolol 25 mg daily long-acting. She now is on metoprolol 50 mg twice a day short acting and the Cardizem 240 daily is new. She has an appointment to see her regular provider next Thursday 6 days from now. - Related Data Allergies Allergy/AdvReac Type Severity Reaction Status Date / Time Sulfa (Sulfonamide Allergy Hives Verified 08/22/18 04:55 Antibiotics) Home Meds: Home Meds Folic Acid 1,000 units PO DAILY 10/19/14 [History] Methotrexate Sodium/PF [Methotrexate 250 mg/10 ml Vial] 0.6 ml SUBCUT WEEKLY [History] Diltiazem [Dilacor XR] 240 mg PO DAILY #30 cap.er 08/23/18 [Rx] Metoprolol Tartrate [Lopressor] 50 mg PO BID #60 tablet 08/23/18 [Rx] Rivaroxaban [Xarelto] 20 mg PO ASDIRECTED #30 tablet 08/23/18 [Rx] Diltiazem HCl [Cardizem LA] 180 mg PO DAILY #20 tab.sr.24h 08/24/18 [Rx] Past Medical History HEENT History: Reports: Impaired Vision Other HEENT History: wears glassess Cardiovascular History: Reports: Afib Other Cardiovascular History: cardiac dysrythmia with ablation in 1998 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: Reports: - Past Surgical History HEENT Surgical History: Reports: Tonsillectomy GI Surgical History: Reports: Appendectomy, Colonoscopy Social & Family History - Caffeine Use Caffeine Use: Reports: None ED ROS GENERAL - Review of Systems Review Of Systems: See Below Constitutional: Denies: Fever, Chills, Diaphoresis HEENT: Denies: Sinus Problem, Throat Pain Respiratory: Denies: Shortness of Breath, Cough Cardiovascular: Reports: Chest Pain GI/Abdominal: Denies: Abdominal Pain, Nausea, Vomiting Musculoskeletal: Denies: Neck Pain, Shoulder Pain, Arm Pain Skin: Denies: Rash Neurological: Denies: Dizziness, Numbness, Tingling, Trouble Speaking, Weakness ED EXAM, GENERAL - Physical Exam Exam: See Below General Appearance: Alert, No Apparent Distress Eye Exam: Bilateral Eye: PERRL Throat/Mouth: Normal Inspection Head: Atraumatic Neck: Supple Respiratory/Chest: No Respiratory Distress, Lungs Clear, Normal Breath Sounds Cardiovascular: Regular Rate, Rhythm GI/Abdominal: Soft, Non-Tender Back Exam: No: CVA Tenderness (L), CVA Tenderness (R) Extremities: Normal Inspection. No: Pedal Edema, Leg Pain, Increased Warmth, Redness Neurological: Alert, Oriented, No Motor/Sensory Deficits Skin Exam: Warm, Dry, Normal Color EKG INTERPRETATION EKG Date: 08/24/18 Rhythm: NSR [place]: Normal P-Wave: Present QRS: Normal ST-T: Normal Course - Vital Signs Last Recorded V/S: Last Vital Signs Temp 99.9 F 08/24/18 20:10 Pulse 79 08/24/18 20:10 Resp 18 08/24/18 20:10 BP 109/60 08/24/18 20:10 Pulse Ox 97 08/24/18 20:10 - Orders/Labs/Meds Orders: Active Orders 24 hr Category Date Time Status EKG 12 Lead [EKG Documentation Completion] [RC] STAT Care 08/24/18 20:40 Active - Re-Assessments/Exams Free Text/Narrative Re-Assessment/Exam: 08/25/18 04:43 Heart rate running in the 70s, EKG normal. She's been in no respiratory distress, O2 sats are excellent. Blood pressure relatively low in the 105 to 1: 15 range systolic. She is gone from metoprolol 25 mg daily to 50 mg twice a day and also Cardizem 240 mg long-acting on top of that. She is not a big person weighing only 52 kg. I'm going back her off to Cardizem 180 mg daily. Have requested that she checked her blood pressure and pulse rate about 3 times daily , keep a log of that, return to ED as needed. She does have a clinic appointment scheduled for early next week. Departure - Departure Time of Disposition: 20:57 Disposition: Home, Self-Care 01 Condition: Fair Clinical Impression: Atypical chest pain Prescriptions: Diltiazem HCl [Cardizem LA] 180 mg PO DAILY #20 tab.sr.24h Instructions: Nonspecific Chest Pain, [id number] Referrals: Bhavin Mansfield MD [Primary Care Provider] - Forms: ED Department Discharge Additional Instructions: Continue the metoprolol 50 mg twice daily as prescribed, reduce your dosage of cardizem to 180 from the 240 mg prescribed and take the 180 mg long acting cardizem once daily, precription sent electronic to the Medicine shop, you can pick that up tomorrow morning, continue to record your blood pressure and heart rate twice daily, keep that record for Dr. Bridges, see Dr. Bridges clinic Thursday as planned, return to ED as needed. - My Orders Last 24 Hours: My Active Orders 08/24/18 20:40 EKG 12 Lead [EKG Documentation Completion] [RC] STAT - Assessment/Plan Last 24 Hours: My Active Orders 08/24/18 20:40 EKG 12 Lead [EKG Documentation Completion] [RC] STAT
== END 2018-08-24 21:11 | disposition home or self-care (01) ==
LOC: JD.ED 19:44
DX: R07.89 Other chest pain (principal); I48.91 Unspecified atrial fibrillation; Z79.899 Other long term (current) drug therapy; Z98.890 Other specified postprocedural states; Z90.49 Acquired absence of other specified parts of digestive tract; Z88.2 Allergy status to sulfonamides
CPT/HCPCS: 93005; 93010; 99284; 99284-25

== ENCOUNTER 2018-08-26 06:47 | Emergency (ER) | payer MEDICARE, OTHER ==
[2018-08-26] MEDS ORDERED: Sodium Chloride 0.9% 10 ML Syringe FLUSH PRN (07:06)
--- NOTE | 2018-08-26 08:15 | CR ---
Chest: Frontal view of the chest was obtained utilizing portable technique. Comparison: Prior chest x-ray of 10/19/14. Heart size and mediastinum are normal. Lungs are hyperinflated but otherwise clear. Bony structures are grossly intact. Impression: 1. Probable emphysematous change. Nothing acute is otherwise seen on portable chest x-ray. Diagnostic code #1
--- NOTE | 2018-08-26 08:28 | EDM.PDOC ---
ED HPI GENERAL MEDICAL PROBLEM - General Chief Complaint: Cardiovascular Problem Stated Complaint: HEART ISSUES Time Seen by Provider: 08/26/18 06:55 Source of Information: Reports: Patient History Limitations: Reports: No Limitations - History of Present Illness INITIAL COMMENTS - FREE TEXT/NARRATIVE: The patient presents with chest pain and shortness of breath. She said this happened 3 times last night starting at about 2am. The episodes lasted about 30 minutes and it felt like her heart was pounding. She was recently admitted to the hospital with A-fib with RVR. She was put on cardizem 240mg and metoprolol was increased from 25mg once per day to 50mg 2 times per day. She was discharged and returned to the ER 2 days later. She was lightheaded and her blood pressure was on the low side. One of the ER physicians reduced her cardizem to 180mg daily. She denies fever, chills, cough, congestion, runny nose, or abdominal pain. She does have some nausea. She did have ablation many years ago for a rapid heart rhythm. Onset: Gradual Duration: Hour(s): Location: Reports: Chest Quality: Reports: Pressure Severity: Moderate Improves with: Reports: None Worsens with: Reports: None Context: Reports: Other (laying in bed) Associated Symptoms: Reports: Chest Pain, Shortness of Breath Left Back Pain Score (Numeric/FACES): 3 - Related Data Allergies Allergy/AdvReac Type Severity Reaction Status Date / Time Sulfa (Sulfonamide Allergy Hives Verified 08/26/18 07:23 Antibiotics) Home Meds: Home Meds Folic Acid 1,000 units PO DAILY 10/19/14 [History] Methotrexate Sodium/PF [Methotrexate 250 mg/10 ml Vial] 0.6 ml SUBCUT WEEKLY [History] Metoprolol Tartrate [Lopressor] 50 mg PO BID #60 tablet 08/23/18 [Rx] Diltiazem HCl [Cardizem LA] 180 mg PO DAILY #20 tab.sr.24h 08/24/18 [Rx] Rivaroxaban [Xarelto] 20 mg PO DAILY 08/26/18 [History] Past Medical History HEENT History: Reports: Impaired Vision Other HEENT History: wears glassess Cardiovascular History: Reports: Afib Other Cardiovascular History: cardiac dysrythmia with ablation in 1998 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: - Past Surgical History HEENT Surgical History: Reports: Tonsillectomy GI Surgical History: Reports: Appendectomy, Colonoscopy Social & Family History - Family History Family Medical History: Noncontributory - Tobacco Use Smoking Status *Q: Never Smoker - Caffeine Use Caffeine Use: Reports: None - Recreational Drug Use Recreational Drug Use: No ED ROS GENERAL - Review of Systems Review Of Systems: See Below Constitutional: Reports: No Symptoms HEENT: Reports: No Symptoms Respiratory: Reports: Shortness of Breath Cardiovascular: Reports: Chest Pain, Palpitations Endocrine: Reports: No Symptoms GI/Abdominal: Reports: No Symptoms : Reports: No Symptoms Musculoskeletal: Reports: No Symptoms Skin: Reports: No Symptoms Neurological: Reports: No Symptoms ED EXAM, GENERAL - Physical Exam Exam: See Below Exam Limited By: No Limitations General Appearance: Alert, No Apparent Distress Ears: Normal External Exam Nose: Normal Inspection Head: Atraumatic, Normocephalic Neck: Normal Inspection Respiratory/Chest: No Respiratory Distress, Lungs Clear, Normal Breath Sounds Cardiovascular: Regular Rate, Rhythm, No Edema, No Murmur GI/Abdominal: Soft, Non-Tender, No Organomegaly, No Mass Back Exam: Normal Inspection Extremities: Normal Inspection Neurological: Alert, Oriented, No Motor/Sensory Deficits EKG INTERPRETATION EKG Date: 08/26/18 Time: 06:55 Rhythm: NSR Rate (Beats/Min): 74 [place]: Normal P-Wave: Present QRS: Normal ST-T: Normal QT: Normal Course - Vital Signs Last Recorded V/S: Last Vital Signs Temp 98.3 F 08/26/18 06:51 Pulse 81 08/26/18 06:51 Resp 17 08/26/18 06:51 BP 121/54 L 08/26/18 06:51 Pulse Ox 99 08/26/18 06:51 - Orders/Labs/Meds Orders: Active Orders 24 hr Category Date Time Status Cardiac Monitoring [RC] . DIRECTED Care 08/26/18 07:06 Active EKG Documentation Completion [RC] STAT Care 08/26/18 07:07 Active Peripheral IV Care [RC] . DIRECTED Care 08/26/18 07:07 Active Sodium Chloride 0.9% [Saline Flush] Med 08/26/18 07:06 Active 10 ml FLUSH ASDIRECTED PRN Peripheral IV Insertion Adult [OM.PC] Stat Oth 08/26/18 07:06 Ordered Medication Orders Sodium Chloride (Saline Flush) 10 ml FLUSH ASDIRECTED PRN PRN Reason: Keep Vein Open Last Admin: 08/26/18 07:34 Dose: 10 ml Labs: Laboratory Tests 08/26/18 08/26/18 Range/Units 07:15 07:15 WBC 11.92 H (3.98-10.04) K/mm3 RBC 3.51 L (3.98-5.22) M/mm3 Hgb 11.6 (11.2-15.7) gm/L Hct 34.3 (34.1-44.9) % MCV 97.7 H (79.4-94.8) fl MCH 33.0 H (25.6-32.2) pg MCHC 33.8 (32.2-35.5) g/dl RDW Std Deviation 41.1 (36.4-46.3) fL Plt Count 236 (182-369) K/mm3 MPV 8.9 L (9.4-12.3) fl Neut % (Auto) 80.8 H (34.0-71.1) % Lymph % (Auto) 9.9 L (19.3-51.7) % [place] % (Auto) 7.6 (4.7-12.5) % Eos % (Auto) 1.3 (0.7-5.8) Baso % (Auto) 0.3 (0.1-1.2) % Neut # (Auto) 9.64 H (1.56-6.13) K/mm3 Lymph # (Auto) 1.18 (1.18-3.74) K/mm3 [place] # (Auto) 0.90 H (0.24-0.36) K/mm3 Eos # (Auto) 0.15 (0.04-0.36) K/mm3 Baso # (Auto) 0.04 (0.01-0.08) K/mm3 Manual Slide Review Abnormal smear Sodium 140 (136-145) mEq/L Potassium 3.6 (3.5-5.1) mEq/L Chloride 101 (98-107) mEq/L Carbon Dioxide 27 (21-32) mEq/L Anion Gap 15.6 H (5-15) BUN 10 (7-18) mg/dL Creatinine 0.8 (0.55-1.02) mg/dL Est Cr Clr Drug Dosing 53.97 mL/min Estimated GFR (MDRD) > 60 (>60) mL/min BUN/Creatinine Ratio 12.5 L (14-18) Glucose 103 (80-115) mg/dL Calcium 9.4 (8.5-10.1) mg/dL Total Bilirubin 0.5 (0.2-1.0) mg/dL AST 18 (15-37) U/L ALT 19 (14-59) U/L Alkaline Phosphatase 92 (46-116) U/L Troponin I < 0.017 (0.00-0.056) ng/mL Total Protein 7.9 (6.4-8.2) g/dl Albumin 3.4 (3.4-5.0) g/dl Globulin 4.5 gm/dL Albumin/Globulin Ratio 0.8 L (1-2) Meds: Medications Generic Name Dose Route Start Last Admin Trade Name Freq PRN Reason Stop Dose Admin Sodium Chloride 10 ml 08/26/18 07:06 08/26/18 07:34 Saline Flush FLUSH 10 ml ASDIRECTED PRN Administration Keep Vein Open - Re-Assessments/Exams Free Text/Narrative Re-Assessment/Exam: 08/26/18 08:29 I ordered an IV saline lock, labs, EKG, CXR and labs. Her EKG shows a NSR with no acute changes. Her CXR shows probable emphysematous change. Nothing acute is otherwise seen on portable chest x-ray. Her WBC was elevated at 11.92. Her Hgb and platelets were normal. Her troponin was negative. She had no episodes of A-fib here but I am worried she may be having some at night and different times. 08/26/18 08:39 I talked with the patient more and she says last nights episode was different then the ones before. Her heart was pounding hard but not going fast. Departure - Departure Time of Disposition: 08:55 Disposition: Home, Self-Care 01 Condition: Good Clinical Impression: Pounding heartbeat Chest pain Qualifiers: Chest pain type: unspecified Qualified Code(s): R07.9 - Chest pain, unspecified Referrals: Bhavin Mansfield MD [Primary Care Provider] - 1 Week Forms: ED Department Discharge Additional Instructions: Keep taking your medication as prescribed. Follow up with Dr Mansfield on Thursday as scheduled. Please return if you are worse. - My Orders Last 24 Hours: My Active Orders 08/26/18 07:06 Cardiac Monitoring [RC] . DIRECTED Sodium Chloride 0.9% [Saline Flush] 10 ml FLUSH ASDIRECTED PRN Peripheral IV Insertion Adult [OM.PC] Stat 08/26/18 07:07 EKG Documentation Completion [RC] STAT Peripheral IV Care [RC] . DIRECTED - Assessment/Plan Last 24 Hours: My Active Orders 08/26/18 07:06 Cardiac Monitoring [RC] . DIRECTED Sodium Chloride 0.9% [Saline Flush] 10 ml FLUSH ASDIRECTED PRN Peripheral IV Insertion Adult [OM.PC] Stat 08/26/18 07:07 EKG Documentation Completion [RC] STAT Peripheral IV Care [RC] . DIRECTED
[2018-08-26 09:04] VITALS: BP 108/52
== END 2018-08-26 09:00 | disposition home or self-care (01) ==
LOC: JD.ED 06:47
DX: R00.2 Palpitations (principal); R07.9 Chest pain, unspecified; I48.91 Unspecified atrial fibrillation; Z79.899 Other long term (current) drug therapy; Z88.2 Allergy status to sulfonamides
CPT/HCPCS: 36415; 71045; 71045-26; 80053; 84484; 85025; 93005; 93010; 99284; 99285-25

== ENCOUNTER 2018-10-29 04:52 | Emergency (ER) | payer MEDICARE, OTHER ==
[2018-10-29 04:57] VITALS: BP 179/70
[2018-10-29] MEDS ORDERED: Sodium Chloride 0.9% 10 ML Syringe FLUSH PRN (05:10)
--- NOTE | 2018-10-29 05:16 | EDM.PDOC ---
ED HPI GENERAL MEDICAL PROBLEM - General Chief Complaint: Chest Pain Stated Complaint: CHEST TIGHTNESS Time Seen by Provider: 10/29/18 05:04 Source of Information: Reports: Patient, Family History Limitations: Reports: No Limitations - History of Present Illness INITIAL COMMENTS - FREE TEXT/NARRATIVE: The patient presents with chest tightness. The tightness was on the left side and it is nearly gone now. She has no shortness of breath with it. This started about 1:30am. She had a hard time falling asleep tonight so she has not gone to bed yet. She has no shortness of breath. She has no fever, chills , cough, congestion, runny nose, abdominal pain, nausea or vomiting. She has no swelling in her legs or pain. She did have a history of A-fib. She is on xarelto. She has not had an episode of fast irregular heart rate and she is currently out of A-fib. Onset: Gradual Duration: Hour(s): (1:30am) Location: Reports: Chest Quality: Reports: Other (Tightness) Severity: Mild Improves with: Reports: None Worsens with: Reports: None Associated Symptoms: Reports: Chest Pain. Denies: Cough, Fever/Chills, Headaches, Nausea/Vomiting, Shortness of Breath Chest Pain Score (Numeric/FACES): 6 - Related Data Allergies Allergy/AdvReac Type Severity Reaction Status Date / Time Sulfa (Sulfonamide Allergy Hives Verified 10/29/18 04:55 Antibiotics) Home Meds: Home Meds Folic Acid 1,000 units PO DAILY 10/19/14 [History] Methotrexate Sodium/PF [Methotrexate 250 mg/10 ml Vial] 0.6 ml SUBCUT WEEKLY [History] Metoprolol Tartrate [Lopressor] 50 mg PO BID #60 tablet 08/23/18 [Rx] Diltiazem HCl [Cardizem LA] 180 mg PO DAILY #20 tab.sr.24h 08/24/18 [Rx] Rivaroxaban [Xarelto] 20 mg PO DAILY 08/26/18 [History] Past Medical History HEENT History: Reports: Impaired Vision Other HEENT History: wears glassess Cardiovascular History: Reports: Afib Other Cardiovascular History: cardiac dysrythmia with ablation in 1998 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: COPD 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: Musculoskeletal History: Reports: RA - Past Surgical History HEENT Surgical History: Reports: Tonsillectomy Cardiovascular Surgical History: Reports: Cardiac Ablation GI Surgical History: Reports: Appendectomy, Colonoscopy Female Surgical History: Reports: Hysterectomy Social & Family History - Family History Family Medical History: Noncontributory - Tobacco Use Smoking Status *Q: Never Smoker - Caffeine Use Caffeine Use: Reports: None - Recreational Drug Use Recreational Drug Use: No ED ROS GENERAL - Review of Systems Review Of Systems: See Below Constitutional: Reports: No Symptoms HEENT: Reports: No Symptoms Respiratory: Reports: No Symptoms Cardiovascular: Reports: Chest Pain Endocrine: Reports: No Symptoms GI/Abdominal: Reports: No Symptoms : Reports: No Symptoms ED EXAM, GENERAL - Physical Exam Exam: See Below Exam Limited By: No Limitations General Appearance: Alert, No Apparent Distress Ears: Normal External Exam Nose: Normal Inspection Head: Atraumatic, Normocephalic Neck: Normal Inspection Respiratory/Chest: No Respiratory Distress, Lungs Clear, Normal Breath Sounds Cardiovascular: Regular Rate, Rhythm, No Edema, No Murmur GI/Abdominal: Soft, Non-Tender, No Organomegaly, No Mass Back Exam: Normal Inspection Extremities: Normal Inspection EKG INTERPRETATION EKG Date: 10/29/18 Time: 04:57 Rhythm: NSR Rate (Beats/Min): 61 [place]: Normal P-Wave: Present QRS: Normal ST-T: Normal QT: Normal Course - Vital Signs Last Recorded V/S: Last Vital Signs Temp 97.9 F 10/29/18 04:55 Pulse 67 10/29/18 04:55 Resp 16 10/29/18 04:55 BP 179/70 H 10/29/18 04:55 Pulse Ox 96 10/29/18 04:55 - Orders/Labs/Meds Orders: Active Orders 24 hr Category Date Time Status Cardiac Monitoring [RC] . DIRECTED Care 10/29/18 05:10 Active EKG Documentation Completion [RC] STAT Care 10/29/18 05:10 Active Peripheral IV Care [RC] . DIRECTED Care 10/29/18 05:11 Active Sodium Chloride 0.9% [Saline Flush] Med 10/29/18 05:10 Active 10 ml FLUSH ASDIRECTED PRN Peripheral IV Insertion Adult [OM.PC] Stat Oth 10/29/18 05:10 Ordered Medication Orders Sodium Chloride (Saline Flush) 10 ml FLUSH ASDIRECTED PRN PRN Reason: Keep Vein Open Last Admin: 10/29/18 05:16 Dose: 10 ml Labs: Laboratory Tests 10/29/18 10/29/18 Range/Units 04:55 04:55 WBC 6.03 (3.98-10.04) K/mm3 RBC 3.80 L (3.98-5.22) M/mm3 Hgb 12.4 (11.2-15.7) gm/L Hct 37.5 (34.1-44.9) % MCV 98.7 H (79.4-94.8) fl MCH 32.6 H (25.6-32.2) pg MCHC 33.1 (32.2-35.5) g/dl RDW Std Deviation 46.2 (36.4-46.3) fL Plt Count 145 L (182-369) K/mm3 MPV 11.0 (9.4-12.3) fl Neut % (Auto) 58.8 (34.0-71.1) % Lymph % (Auto) 29.0 (19.3-51.7) % [place] % (Auto) 9.8 (4.7-12.5) % Eos % (Auto) 1.7 (0.7-5.8) Baso % (Auto) 0.5 (0.1-1.2) % Neut # (Auto) 3.55 (1.56-6.13) K/mm3 Lymph # (Auto) 1.75 (1.18-3.74) K/mm3 [place] # (Auto) 0.59 H (0.24-0.36) K/mm3 Eos # (Auto) 0.10 (0.04-0.36) K/mm3 Baso # (Auto) 0.03 (0.01-0.08) K/mm3 Sodium 139 (136-145) mEq/L Potassium 3.8 (3.5-5.1) mEq/L Chloride 103 (98-107) mEq/L Carbon Dioxide 28 (21-32) mEq/L Anion Gap 11.8 (5-15) BUN 14 (7-18) mg/dL Creatinine 1.0 (0.55-1.02) mg/dL Est Cr Clr Drug Dosing 44.95 mL/min Estimated GFR (MDRD) 55 (>60) mL/min BUN/Creatinine Ratio 14.0 (14-18) Glucose 102 (80-115) mg/dL Calcium 8.9 (8.5-10.1) mg/dL Total Bilirubin 0.3 (0.2-1.0) mg/dL AST 21 (15-37) U/L ALT 30 (14-59) U/L Alkaline Phosphatase 90 (46-116) U/L Troponin I < 0.017 (0.00-0.056) ng/mL Total Protein 7.6 (6.4-8.2) g/dl Albumin 3.8 (3.4-5.0) g/dl Globulin 3.8 gm/dL Albumin/Globulin Ratio 1.0 (1-2) Meds: Medications Generic Name Dose Route Start Last Admin Trade Name Freq PRN Reason Stop Dose Admin Sodium Chloride 10 ml 10/29/18 05:10 10/29/18 05:16 Saline Flush FLUSH 10 ml ASDIRECTED PRN Administration Keep Vein Open - Re-Assessments/Exams Free Text/Narrative Re-Assessment/Exam: 10/29/18 05:15 I ordered an IV saline lock, EKG, CXR and labs. 10/29/18 06:33 Her EKG shows a NSR with no acute changes. Her CXR shows some COPD changes but nothing acute. Her CBC and CMP look good. Her troponin is negative. She feels good. I will discharge her home. Departure - Departure Time of Disposition: 06:35 Disposition: Home, Self-Care 01 Condition: Good Clinical Impression: Atypical chest pain Referrals: Bhavin Mansfield MD [Primary Care Provider] - 1 Week Forms: ED Department Discharge Additional Instructions: Take your medication as prescribed. Please return if you get worse. Follow up with your doctor within 1 week. - My Orders Last 24 Hours: My Active Orders 10/29/18 05:10 Cardiac Monitoring [RC] . DIRECTED EKG Documentation Completion [RC] STAT Sodium Chloride 0.9% [Saline Flush] 10 ml FLUSH ASDIRECTED PRN Peripheral IV Insertion Adult [OM.PC] Stat 10/29/18 05:11 Peripheral IV Care [RC] . DIRECTED - Assessment/Plan Last 24 Hours: My Active Orders 10/29/18 05:10 Cardiac Monitoring [RC] . DIRECTED EKG Documentation Completion [RC] STAT Sodium Chloride 0.9% [Saline Flush] 10 ml FLUSH ASDIRECTED PRN Peripheral IV Insertion Adult [OM.PC] Stat 10/29/18 05:11 Peripheral IV Care [RC] . DIRECTED
--- NOTE | 2018-10-29 06:27 | CR ---
Chest: Frontal view of the chest was obtained. Comparison: Prior chest x-ray 08/26/18. Heart size and mediastinum are normal. Lungs are clear but hyperinflated. Bony structures are grossly intact. Impression: 1. Probable emphysematous change. Nothing acute is seen. No change from previous study. Diagnostic code #2
== END 2018-10-29 06:43 | disposition home or self-care (01) ==
LOC: JD.ED 04:52
DX: R07.89 Other chest pain (principal); I48.91 Unspecified atrial fibrillation; J44.9 Chronic obstructive pulmonary disease, unspecified; Z79.899 Other long term (current) drug therapy; Z88.2 Allergy status to sulfonamides
CPT/HCPCS: 36415; 71045; 71045-26; 80053; 84484; 85025; 93005; 99285-25